=== PATIENT | female | born 1940 | race Caucasian/White ===

== ENCOUNTER → 2016-07-27 | Outpatient (CLI) | payer MEDICARE, OTHER ==
[~2016-07-27] VITALS: Ht 156.2 cm; Wt 101.6 kg
[~2016-07-27] MED LIST: AMITRIPTYLINE H25 M1 PO; ATIVAN 1MG T1 MG/TAB PO; CALCIUM 600MG+D1 TAB; CELEBREX 200MG200 MG PO; GLUCOPHAGE500 MG/TAB PO; MULTIPLE VITAMI1 TA1 PO; NATURAL E400 IU PO; PRILOSEC 20MG20 MG PO; PROLIA60 MG/ML SC; TAMOXIFEN CITRA20 MG PO; VITAMIN B COMPL1 T16 PO; VITAMIN D 50,1.25 MG PO
[2016-07-27 13:34] VITALS: BP 124/70; PULSE 80
[2016-07-27 17:27] VITALS: BP 124/70; PULSE 80
== END ==
LOC: LIGHT 06-22 14:28
DX: E16.1 Other hypoglycemia (principal); G47.33 Obstructive sleep apnea (adult) (pediatric); K21.9 Gastro-esophageal reflux disease without esophagitis; E66.01 Morbid (severe) obesity due to excess calories; Z68.41 Body mass index [BMI] 40.0-44.9, adult

== ENCOUNTER → 2016-09-21 | Outpatient (CLI) | payer MEDICARE, OTHER ==
[~2016-09-21] VITALS: Ht 156.2 cm; Wt 103.2 kg
[2016-09-21 13:42] VITALS: BP 126/62; PULSE 108
== END ==
LOC: LIGHT 09:09
DX: E16.1 Other hypoglycemia (principal); G47.33 Obstructive sleep apnea (adult) (pediatric); K21.9 Gastro-esophageal reflux disease without esophagitis; E66.01 Morbid (severe) obesity due to excess calories; Z68.41 Body mass index [BMI] 40.0-44.9, adult; Z85.3 Personal history of malignant neoplasm of breast

== ENCOUNTER 2016-11-03 08:45 | Outpatient (RCR) | payer MEDICARE, OTHER | END 2016-11-08 | disposition home or self-care (01) | LOC: WSPT | DX: I89.0 Lymphedema, not elsewhere classified (principal); M13.852 Other specified arthritis, left hip; M13.851 Other specified arthritis, right hip | CPT/HCPCS: G8978-GP; G8979-GP; G8980-GP ==